=== PATIENT | female | born 1970 | race Hispanic/Latino ===

== ENCOUNTER 2023-12-24 19:34 | Emergency (ER) | payer BC ==
[~2023-12-24] VITALS: Ht 154.9 cm; Wt 49.9 kg
[2023-12-24] MEDS ORDERED: KETOROLAC TROMETHAMINE 30 MG/ML VIAL ONE (20:03)
[2023-12-24] MEDS: KETOROLAC TROMETHAMINE 30 MG/ML VIAL IM STA (20:07)
[2023-12-24 20:13] LABS: BILIRUBIN,URINE NEGATIVE (NEGATIVE); CLARITY,URINE CLEAR (CLEAR); COLOR,URINE YELLOW (YELLOW); GLUCOSE, URINE NEGATIVE (NEGATIVE); KETONES,URINE NEGATIVE (NEGATIVE); LEUKOCYTE ESTERASE ,URINE NEGATIVE (NEGATIVE); NITRITE,URINE NEGATIVE (NEGATIVE); PH,URINE 7 (5 - 7); PROTEIN,URINE DIPSTICK NEGATIVE (NEGATIVE); URINE UROBILINOGEN 0.2 mg/dL (0.2 - 1)
[2023-12-24 20:29] LABS: RBC,URINE 0-5 /HPF (0-5)
[2023-12-24] MEDS ORDERED: CYCLOBENZAPRINE5 MG PO (23:14)
[2023-12-24] MEDS ORDERED: MEDROL4 M2 PO (23:14)
[2023-12-24 23:42] VITALS: BP 115/70; PULSE 67; RESP 16; TEMP 98.2; O2SAT 100
== END 2023-12-24 23:32 | disposition home or self-care (01) ==
LOC: MERGE 19:42 → ER 19:42
DX: S39.82XA Other specified injuries of lower back, initial encounter (principal); M79.605 Pain in left leg; M79.604 Pain in right leg
CPT/HCPCS: 74176; 81001; 99283; J1885